=== PATIENT | male | born 1980 | race American Indian/Alaskan Native ===

== ENCOUNTER 2017-10-10 03:13 | Emergency (ER) | payer SELFPAY ==
[2017-10-10 03:57] LABS: Basophils # (Auto) 0.1 K/mm3 (0.0-0.1); Basophils % (Auto) 0.8 % (0.0-1.8); Eosinophils # (Auto) 0.1 K/mm3 (0.0-0.4); Eosinophils % (Auto) 0.9 % (0.0-4.3); Hematocrit 39.1 % (35.5-45.6); Hemoglobin 13.1 gm/dl (11.8-15.2); Lymphocytes # (Auto) 3.1 K/mm3 (1.2-5.4); Lymphocytes % (Auto) 29.6 % (13.4-35.0); Mean Corpuscular HGB Conc 33 % (32-34); Mean Corpuscular Hemoglobin 28 pg (28-32); Mean Corpuscular Volume 82 fl (84-94); Monocytes # (Auto) 1.3 K/mm3 (0.0-0.8); Monocytes % (Auto) 11.8 % (0.0-7.3); Platelet Count 268 K/mm3 (140-440); Red Blood Count 4.75 M/mm3 (3.65-5.03); Red Cell Distribution Width 14.1 % (13.2-15.2)
--- NOTE | 2017-10-10 04:08 | XRay Report ---
FINAL REPORT EXAM: XR FEMUR 2+V LT HISTORY: fall COMPARISONS: None. FINDINGS: AP and lateral views left femur No fracture or gross malalignment identified. There is moderate osteoarthrosis in the left knee. IMPRESSION: No left femur fracture. Consider additional imaging for worsening/persistent symptoms.
[2017-10-10 04:09] LABS: BUN/Creatinine Ratio 17; Blood Urea Nitrogen 24 mg/dL (9-20); Calcium 9.2 mg/dL (8.4-10.2); Hemolysis Index 2
--- NOTE | 2017-10-10 04:26 | Cat Scan Report ---
FINAL REPORT EXAM: CT HEAD/BRAIN WO CON HISTORY: fall TECHNIQUE: CT imaging acquired through the head without intravenous contrast. Transaxial reformations are provided. PRIORS: None. FINDINGS: The ventricles, cisterns and sulci are normal. No intraparenchymal or extra-axial mass, hemorrhage, or mass effect. Pritchard and white-matter differentiation is within normal limits. Normal spherical shape of the globes. Left frontoparietal scalp injury with overlying skin closure clips. Paranasal sinuses and mastoid air cells are clear. No skull or facial fracture visualized. IMPRESSION: No acute intracranial abnormality. Left frontoparietal scalp injury. No skull fracture.
--- NOTE | 2017-10-10 04:28 | Cat Scan Report ---
FINAL REPORT EXAM: CT FACIAL BONES WO CON HISTORY: fall TECHNIQUE: CT images are acquired through the face without contrast. Transaxial , coronal and sagittal reformations are provided. PRIORS: None. FINDINGS: No facial fractures. The bony orbits, nasal bones, pterygoid plates, mandible and maxilla are intact. Normal spherical shape of the globes. No significant abnormality within the imaged paranasal sinuses or mastoid air cells. IMPRESSION: No facial fracture.
[2017-10-10] MEDS ORDERED: KEPPRA 1,000 MG/NS 0.75% 100ML 1,000 MG/100 ML BAG IV ONE (06:23)
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
[2017-10-10 10:05] VITALS: BP 162/99
== END 2017-10-10 11:00 | disposition home or self-care (01) ==
LOC: ED 03:13
DX: R56.9 Unspecified convulsions (principal); F17.200 Nicotine dependence, unspecified, uncomplicated; F12.10 Cannabis abuse, uncomplicated
CPT/HCPCS: 36415; 70450; 70486; 73552; 80048; 85025; 96374; 99284; J1953

== ENCOUNTER 2017-10-23 23:28 | Emergency (ER) | payer SELFPAY ==
[2017-10-24 00:40] LABS: Basophils # (Auto) 0.1 K/mm3 (0.0-0.1); Basophils % (Auto) 1.5 % (0.0-1.8); Eosinophils # (Auto) 0.1 K/mm3 (0.0-0.4); Eosinophils % (Auto) 1.3 % (0.0-4.3); Hemoglobin 12.5 gm/dl (11.8-15.2); Lymphocytes # (Auto) 3.8 K/mm3 (1.2-5.4); Lymphocytes % (Auto) 47.8 % (13.4-35.0); Mean Corpuscular HGB Conc 35 % (32-34); Mean Corpuscular Hemoglobin 28 pg (28-32); Mean Corpuscular Volume 81 fl (84-94); Monocytes # (Auto) 0.6 K/mm3 (0.0-0.8); Monocytes % (Auto) 8.2 % (0.0-7.3); Platelet Count 303 K/mm3 (140-440); Red Blood Count 4.46 M/mm3 (3.65-5.03); Red Cell Distribution Width 14.5 % (13.2-15.2)
[2017-10-24 03:12] LABS: Benzodiazepines Screen,Urine PRESUMPTIVE NEGATIVE; Cocaine Screen,Urine PRESUMPTIVE NEGATIVE; Methadone Screen,Urine PRESUMPTIVE NEGATIVE; Opiate Screen,Urine PRESUMPTIVE NEGATIVE
[2017-10-24 03:31] LABS: Amphetamine Screen,Urine PRESUMPTIVE POSITIVE; Cannabinoid Screen,Urine PRESUMPTIVE POSITIVE
[2017-10-24 03:36] LABS: Alanine Aminotransferase 15 units/L (7-56); BUN/Creatinine Ratio 14; Blood Urea Nitrogen 19 mg/dL (9-20); Calcium 9.4 mg/dL (8.4-10.2); Hemolysis Index 6
[2017-10-24] MEDS ORDERED: KEPPRA 1,000 MG/NS 0.75% 100ML 1,000 MG/100 ML BAG IV ONE (03:37)
--- NOTE | 2017-10-24 03:54 | Emergency Department Report ---
ED Seizure HPI - General Chief Complaint: Seizure Stated Complaint: HEAD TRAUMA(SEIZURE) NATHAN Time Seen by Provider: 10/24/17 03:30 Source: patient Mode of arrival: Ambulatory Limitations: No Limitations - History of Present Illness Initial Comments: 37-year-old male with a past medical history of seizures and psychiatric disorder presents to the hospital status post seizure. Patient is alert and oriented upon arrival. Patient also wonders his nathan to be evaluated. I saw patient on October 10 and nathan were present at this time and they are well overdue for removal. - Related Data Home Medications Medication Instructions Recorded Confirmed Last Taken Esomeprazole Magnesium [Nexium] 20 mg PO DAILY 10/10/17 10/10/17 Unknown Esomeprazole Strontium 20 mg PO DAILY 10/10/17 10/10/17 Unknown OLANZapine 10 mg PO HS 10/10/17 10/10/17 Unknown Topiramate [Topamax TAB] 50 mg PO BID 10/10/17 10/10/17 Unknown Previous Rx's Medication Instructions Recorded Last Taken Type levETIRAcetam [Keppra TAB] 1,000 mg PO BID #60 tablet 10/24/17 Unknown Rx Allergies Allergy/AdvReac Type Severity Reaction Status Date / Time No Known Allergies Allergy Unverified 10/10/17 03:17 ED Review of Systems ROS: Stated complaint: HEAD TRAUMA(SEIZURE) NATHAN Other details as noted in HPI Comment: All other systems reviewed and negative ED Past Medical Hx - Past Medical History Previous Medical History?: Yes Additional medical history: Seizure - Surgical History Past Surgical History?: No - Social History Smoking Status: Current Every Day Smoker Substance Use Type: None - Medications Home Medications: Home Medications Medication Instructions Recorded Confirmed Last Taken Type Esomeprazole Magnesium [Nexium] 20 mg PO DAILY 10/10/17 10/10/17 Unknown History Esomeprazole Strontium 20 mg PO DAILY 10/10/17 10/10/17 Unknown History OLANZapine 10 mg PO HS 10/10/17 10/10/17 Unknown History Topiramate [Topamax TAB] 50 mg PO BID 10/10/17 10/10/17 Unknown History levETIRAcetam [Keppra TAB] 1,000 mg PO BID #60 tablet 10/24/17 Unknown Rx ED Physical Exam - General Limitations: No Limitations - Other Other exam information: General: No limitations, patient is alert in no acute distress Head exam: Left parietal nathan Eyes exam: Normal appearance, pupils equal reactive to light, extraocular movements intact ENT: Moist mucous membrane, normal oropharynx Neck exam: Normal inspection, full range of motion, no meningismus nontender Respiratory exam: Clear to auscultation bilateral, no wheezes, rales, crackles Cardiovascular: Normal rate and rhythm, normal heart sounds Abdomen: Soft, nondistended, and nontender, with normal bowel sounds, no rebound, or guarding Extremity: Full range of motion normal inspection no deformity Back: Normal Inspection, full range of motion, no tenderness Neurologic: Alert, oriented x3, cranial nerves intact, no motor or sensory deficit Psychiatric: normal affect, normal mood Skin: Warm, dry, intact ED Course Vital Signs 10/23/17 10/24/17 23:55 00:18 Temperature 98.9 F 98.9 F Pulse Rate 75 74 Respiratory 14 17 Rate Blood Pressure 126/71 126/71 O2 Sat by Pulse 98 99 Oximetry ED Medical Decision Making - Lab Data Result diagrams: 10/24/17 00:27 10/24/17 00:27 Lab Results 10/24/17 10/24/17 10/24/17 Range/Units 00:27 00:27 02:30 WBC 7.9 (4.5-11.0) K/mm3 RBC 4.46 (3.65-5.03) M/mm3 Hgb 12.5 (11.8-15.2) gm/dl Hct 36.0 (35.5-45.6) % MCV 81 L (84-94) fl MCH 28 (28-32) pg MCHC 35 H (32-34) % RDW 14.5 (13.2-15.2) % Plt Count 303 (140-440) K/mm3 Lymph % (Auto) 47.8 H (13.4-35.0) % [place] % (Auto) 8.2 H (0.0-7.3) % Eos % (Auto) 1.3 (0.0-4.3) % Baso % (Auto) 1.5 (0.0-1.8) % Lymph # 3.8 (1.2-5.4) K/mm3 [place] # 0.6 (0.0-0.8) K/mm3 Eos # 0.1 (0.0-0.4) K/mm3 Baso # 0.1 (0.0-0.1) K/mm3 Seg Neutrophils % 41.2 (40.0-70.0) % Seg Neutrophils # 3.2 (1.8-7.7) K/mm3 Sodium 142 (137-145) mmol/L Potassium 3.7 (3.6-5.0) mmol/L Chloride 104.5 (98-107) mmol/L Carbon Dioxide 25 (22-30) mmol/L Anion Gap 16 mmol/L BUN 19 (9-20) mg/dL Creatinine 1.4 (0.8-1.5) mg/dL Estimated GFR > 60 ml/min BUN/Creatinine Ratio 14 % Glucose 89 (75-100) mg/dL Calcium 9.4 (8.4-10.2) mg/dL Magnesium 2.20 (1.7-2.3) mg/dL Total Bilirubin 0.20 (0.1-1.2) mg/dL AST 18 (5-40) units/L ALT 15 (7-56) units/L Alkaline Phosphatase 44 (35-129) units/L Total Protein 7.2 (6.3-8.2) g/dL Albumin 4.0 (3.9-5) g/dL Albumin/Globulin Ratio 1.3 % Urine Opiates Screen Presumptive negative Urine Methadone Screen Presumptive negative Ur Barbiturates Screen Presumptive negative Ur Phencyclidine Scrn Presumptive negative Ur Amphetamines Screen Presumptive positive U Benzodiazepines Scrn Presumptive negative Urine Cocaine Screen Presumptive negative U Marijuana (THC) Screen Presumptive positive Drugs of Abuse Note Disclamer - Medical Decision Making Seizure No seizure activity in the ED Received IV Keppra prior to discharge UDS positive for amphetamines Medication compliance uncertain Bonita removed without incident - Differential Diagnosis seizure, drug abuse, medication noncompliance Critical Care Time: No Critical care attestation.: If time is entered above; I have spent that time in minutes in the direct care of this critically ill patient, excluding procedure time. ED Disposition Clinical Impression: Seizure, Amphetamine abuse, Marijuana use, Removal of nathan Disposition: OP ADMIT IP TO THIS HOSP Is pt being admited?: Yes Condition: Stable Instructions: Recurrent Seizures Adult (ED) Additional Instructions: Take the medication as prescribed. Follow up with your doctor. Return if symptoms worsen as indicated by your discharge instructions Prescriptions: levETIRAcetam [Keppra TAB] 1,000 mg PO BID #60 tablet Referrals: PRIMARY CARE, [Primary Care Provider] - 3-5 Days NAHUN GACRÍA MD [Staff Physician] - 3-5 Days (Neurology) Time of Disposition: 04:53
[2017-10-24 05:11] VITALS: BP 133/86
== END 2017-10-24 05:13 | disposition admitted as inpatient to this hospital (09) ==
LOC: ED 23:28
DX: R56.9 Unspecified convulsions (principal); F15.10 Other stimulant abuse, uncomplicated; F12.10 Cannabis abuse, uncomplicated; F17.200 Nicotine dependence, unspecified, uncomplicated; Z48.01 Encounter for change or removal of surgical wound dressing
CPT/HCPCS: 36415; 80053; 80307; 83735; 85025; J1953

== ENCOUNTER 2017-10-30 23:27 | Emergency (ER) | payer SELFPAY | END 2017-10-31 01:15 | disposition left against medical advice (07) | LOC: ED 23:27 | DX: R51 Headache (principal); M79.604 Pain in right leg; M79.605 Pain in left leg; Z53.21 Procedure and treatment not carried out due to patient leaving prior to being seen by health care provider ==

== ENCOUNTER 2017-10-31 12:23 | Emergency (ER) | payer SELFPAY ==
[2017-10-31 12:41] VITALS: BP 118/70
[2017-10-31] MEDS ORDERED: SOLU-Medrol IM ONE (14:34)
[2017-10-31] MEDS ORDERED: FIORICET PO ONE (14:34)
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
== END 2017-10-31 15:27 | disposition home or self-care (01) ==
LOC: ED 12:23
DX: R51 Headache (principal); G89.29 Other chronic pain; M25.562 Pain in left knee; M25.561 Pain in right knee; I10 Essential (primary) hypertension; F17.200 Nicotine dependence, unspecified, uncomplicated; Z88.6 Allergy status to analgesic agent
CPT/HCPCS: 96372; 99282; J2930

== ENCOUNTER 2017-11-08 17:11 | Emergency (ER) | payer SELFPAY ==
[2017-11-08 18:51] LABS: Hemoglobin 13.4 gm/dl (11.8-15.2); Mean Corpuscular HGB Conc 33 % (32-34); Mean Corpuscular Hemoglobin 27 pg (28-32); Mean Corpuscular Volume 82 fl (84-94); Platelet Count 294 K/mm3 (140-440); Red Blood Count 5.01 M/mm3 (3.65-5.03); Red Cell Distribution Width 14.5 % (13.2-15.2)
[2017-11-08 19:06] LABS: BUN/Creatinine Ratio 10; Blood Urea Nitrogen 13 mg/dL (9-20); Calcium 9.8 mg/dL (8.4-10.2); Hemolysis Index 13
[2017-11-08] MEDS ORDERED: KEPPRA 500 MG/NS 0.82% 100 ML 500 MG/100 ML BAG IV ONE (21:12)
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
[2017-11-09 01:20] LABS: Benzodiazepines Screen,Urine PRESUMPTIVE NEGATIVE; Cocaine Screen,Urine PRESUMPTIVE NEGATIVE; Methadone Screen,Urine PRESUMPTIVE NEGATIVE; Opiate Screen,Urine PRESUMPTIVE NEGATIVE
[2017-11-09 01:27] LABS: Amorphous Crystals,Urine 3+; Bacteria,Urine 1+ /HPF (Negative); Bilirubin,Urine NEG (Negative); Blood,Urine NEG (Negative); Color,Urine Yellow (Yellow); Mucus,Urine FEW /HPF; Protein,Urine <15 mg/dL mg/dL (Negative); Urobilinogen,Urine < 2.0 mg/dL (<2.0)
[2017-11-09 01:37] LABS: Amphetamine Screen,Urine PRESUMPTIVE POSITIVE; Cannabinoid Screen,Urine PRESUMPTIVE POSITIVE
[2017-11-09 02:32] VITALS: BP 121/79
== END 2017-11-09 02:38 | disposition home or self-care (01) ==
LOC: ED 17:11
DX: R56.9 Unspecified convulsions (principal); F19.10 Other psychoactive substance abuse, uncomplicated; F17.200 Nicotine dependence, unspecified, uncomplicated; F12.10 Cannabis abuse, uncomplicated; Z88.8 Allergy status to other drugs, medicaments and biological substances; Z88.6 Allergy status to analgesic agent
CPT/HCPCS: 36415; 70450; 80048; 80177; 80307; 81001; 82550; 82962; 85027; 96374; 99284; J1953

== ENCOUNTER 2017-11-09 12:20 | Emergency (ER) | payer SELFPAY ==
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
[2017-11-09 13:39] LABS: Basophils # (Auto) 0.1 K/mm3 (0.0-0.1); Basophils % (Auto) 1.2 % (0.0-1.8); Eosinophils # (Auto) 0.1 K/mm3 (0.0-0.4); Eosinophils % (Auto) 1.2 % (0.0-4.3); Hematocrit 41.4 % (35.5-45.6); Hemoglobin 13.8 gm/dl (11.8-15.2); Lymphocytes # (Auto) 3.3 K/mm3 (1.2-5.4); Mean Corpuscular HGB Conc 33 % (32-34); Mean Corpuscular Hemoglobin 27 pg (28-32); Mean Corpuscular Volume 82 fl (84-94); Monocytes # (Auto) 0.7 K/mm3 (0.0-0.8); Monocytes % (Auto) 9.7 % (0.0-7.3); Platelet Count 287 K/mm3 (140-440); Red Blood Count 5.07 M/mm3 (3.65-5.03); Red Cell Distribution Width 14.5 % (13.2-15.2)
[2017-11-09 14:00] LABS: Creatine Kinase MB 1.5 ng/mL (0.0-4.0)
[2017-11-09 14:03] LABS: Alanine Aminotransferase 15 units/L (7-56); Albumin 4.1 g/dL (3.9-5); BUN/Creatinine Ratio 16; Blood Urea Nitrogen 14 mg/dL (9-20); Calcium 9.4 mg/dL (8.4-10.2); Hemolysis Index 7
[2017-11-09] MEDS ORDERED: ZOFRAN IV ONE (14:57)
[2017-11-09] MEDS ORDERED: NACL 0.9% 1000 ML 1,000 ML IV ONE (14:57)
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
[2017-11-09] MEDS ORDERED: KEPPRA PO ONE ×2 (18:40→19:37)
[2017-11-10 04:47] LABS: Bilirubin,Urine NEG (Negative); Blood,Urine NEG (Negative); Color,Urine Yellow (Yellow); Protein,Urine <15 mg/dL mg/dL (Negative); Urobilinogen,Urine < 2.0 mg/dL (<2.0)
[2017-11-10 05:10] LABS: Benzodiazepines Screen,Urine PRESUMPTIVE NEGATIVE; Cocaine Screen,Urine PRESUMPTIVE NEGATIVE; Methadone Screen,Urine PRESUMPTIVE NEGATIVE; Opiate Screen,Urine PRESUMPTIVE NEGATIVE
[2017-11-10 05:30] LABS: Amphetamine Screen,Urine PRESUMPTIVE POSITIVE; Cannabinoid Screen,Urine PRESUMPTIVE POSITIVE
[2017-11-10] MEDS: KEPPRA PO SCH ×2 (15:00→22:35)
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
[2017-11-10] MEDS: REMERON PO SCH (22:36)
[2017-11-11] MEDS: KEPPRA PO SCH ×2 (12:19→21:44)
--- NOTE | 2017-11-11 14:12 | Progress Note ---
Subjective - Reason for Consult Consult date: 11/11/17 Reason for consult: Psychiatric Follow-up Evaluation - Chief Complaint Chief complaint: "I'm not doing too good" Patient is a 37-year-old male who presents to the emergency department with a few different complaints. Psychiatry was consulted because the patient is experiencing depression. Today the patient is calm, but withdrawn and sad during the assessment. Presents very guarded/evasive. He states, " I have a lot personal issues going on right now, which is affecting my mental health." He reports fair appetite and intermittent sleep. He endorses paranoid delusions and visual hallucinations of " figures." He denies AH's and HI's. Patient did not deny or confirm SI's. Mental Status Exam - Vital signs Last Vital Signs Temp 97.8 F 11/11/17 08:43 Pulse 55 L 11/11/17 08:43 Resp 22 11/11/17 08:43 BP 113/64 11/11/17 08:43 Pulse Ox 99 11/11/17 08:43 - Exam Narrative exam: Mental Status Exam General Appearance: Causally Dressed-hospital gown Eye Contact: Intermittent Orientation: Alert and oriented x 4 (person, place, time, date, and situation) Attitude/Behavior: Cooperative, evasive/guarded Sensorium: Distracted Psychomotor & Musculoskeletal Activity: Laying in bed Mood: " not too good" ; severely depressed, anxious Affect: Constricted Speech/Language: Regular rate and tone Thought Processes: Circumstantial Thought Content: Impoverished Perception: Patient denies A/T hallucinations. +VH "figures" Concentration/Attention: Impaired Suicidal Ideations/Plan: +/- suicidal ideation Homicidal Ideations/Plan: Patient denies Judgment: Poor Insight: Poor Assessment and Plan Assessment and plan: Impression: MDD, Severe Type. Substance Use DO (amphetamines). Cannabis Use DO. R/O PTSD. Today the patient is calm, but withdrawn and sad during the assessment. He endorses VH's of "figures."The patient cannot confirm or deny SI' s. DDx: R/O Bipolar DO, R/O Substance Induced Mood DO Recommendation/Plan: Continue 1013. Continue Remeron 15 mg PO HS for PTSD/ Depression. Discussed possible suicidality/medication induced bakari with the patient reference Remeron. Dispo: The patient is pending inpatient psychiatric services. Discussed this patient's case with Dr. Carlos Clemons.
[2017-11-11] MEDS: REMERON PO SCH (21:44)
[2017-11-12] MEDS: KEPPRA PO SCH ×2 (09:57→22:46)
--- NOTE | 2017-11-12 20:04 | Emergency Department Report ---
Blank Doc - Documentation Documentation: I went to see the patient to reassess him medically. Patient is seen ambulatory , awake and oriented. There has not been any further lab work done. His vital signs unstable. At this point the patient is upset and/or concern as to why he was made a 1013. I explained to him that he was seen by the psychiatric team who was the one who placed the 1013 secondary to their concern with his guarded , evasive depressed appearance and that he had endorsed some delusions and/or hallucinations. The patient has been seen by the psychiatric team multiple times since and they have yet to make a recommendation for rescinding his 1013. I explained to him that he will be seen by the psychiatric team upon their next grounds and if they deem the patient calm, appropriate and no longer necessitating inpatient psychiatric admission, then they will either rescind the 1013 or make their recommendation to do so.
[2017-11-12] MEDS: REMERON PO SCH (22:46)
[2017-11-13] MEDS: KEPPRA PO SCH (10:45)
--- NOTE | 2017-11-13 13:21 | Progress Note ---
Subjective - Reason for Consult Reason for consult: depression - Chief Complaint Chief complaint: On my examination today, patient notes that he is not depressed. Furthermore, patient notes he is not having any suicidal thoughts. Patient notes that he presented secondary to uncontrolled symptoms possibly related to epilepsy. He was unable to afford medications due to high cost. Patient does not have any clear follow-up for his neurological presentation. As far as his psychiatric presentation, patient is not meeting acute criteria for inpatient level of care as patient is not suicidal and has appropriate level of functioning. On mental status examination: This is a 37-year-old slightly appearing older than stated age with clear sensorium good eye contact well related. Mood appears euthymic affect congruent speech clear coherent. Thought process logical goal-directed no associations. Thought content reality oriented. No perceptual maladies. Caution patient tension intact memory intact insight judgment fair. ADLs fair. No suicidal or homicidal thoughts noted. Plan: Rescind 1013 Provide script for Remeron 15 mg po qhs Follow up with [facility] in his areas of residence. Mental Status Exam - Vital signs Last Vital Signs Temp 98.5 F 11/12/17 20:00 Pulse 69 11/12/17 20:00 Resp 18 11/12/17 20:00 BP 131/85 11/12/17 20:00 Pulse Ox 100 11/12/17 20:00
[2017-11-13 13:55] VITALS: BP 132/79
== END 2017-11-13 16:15 | disposition home or self-care (01) ==
LOC: EEVIPCON 12:20 → ED 12:20
DX: R42 Dizziness and giddiness (principal); R11.2 Nausea with vomiting, unspecified; F32.9 Major depressive disorder, single episode, unspecified; G40.909 Epilepsy, unspecified, not intractable, without status epilepticus; I10 Essential (primary) hypertension; J45.909 Unspecified asthma, uncomplicated; F17.200 Nicotine dependence, unspecified, uncomplicated; F12.10 Cannabis abuse, uncomplicated; F15.10 Other stimulant abuse, uncomplicated; Z88.6 Allergy status to analgesic agent
CPT/HCPCS: 36415; 80053; 80307; 81001; 82550; 82553; 84443; 84484; 85025; 93005; 93010; 96361; 96374; 99284; G0480; J2405; J7030; 80320